=== PATIENT | female | born 1970 | race Caucasian/White ===

== ENCOUNTER 2018-02-16 06:34 | Emergency (ER) | payer BC, MEDICAID ==
[2018-02-16 06:34] VITALS: BMI 19.1
[2018-02-16] MEDS ORDERED: Sodium Chloride 0.9% 1,000 ML IV STA (07:23)
[2018-02-16] MEDS ORDERED: Morphine 4 MG/ML VIAL ONE (07:31)
[2018-02-16] MEDS ORDERED: Sodium Chloride 0.9% 1,000 ML ONE (07:31)
[2018-02-16 07:48] LABS: BASO # 0.1 K/uL (0.0-0.2); BASO % 0.7 % (0.0-2.0); EOS % 0.1 % (0.0-4.0); HEMOGLOBIN 11.9 g/dL (11.0-16.0); LYMPH % 7.4 % (20.0-40.0); MEAN CELL VOLUME 86.6 fL (81.0-99.0); MEAN CORPUSCULAR HEMOGLOBIN 29.2 pg (27.0-31.0); MEAN CORPUSCULAR HGB CONC 33.8 g/dL (33.0-37.0); MEAN PLATELET VOLUME 9.9 fL (7.2-11.7); MONO # 0.6 K/uL (0.0-0.8); MONO % 4.2 % (0.0-10.0); NEUT # 11.4 K/uL (1.8-7.0); NEUT % 87.6 % (50.0-75.0); PLATELET COUNT 208 K/uL (130-400); RBC 4.08 Mil/uL (3.80-5.20); RED CELL DISTRIBUTION WIDTH 12.7 % (11.5-14.5)
[2018-02-16 08:02] LABS: INR 1.3; PROTHROMBIN TIME 13.7 SECONDS (9.7-12.2)
[2018-02-16 08:11] LABS: ALB/GLOB RATIO 1.2 (1.0-2.1); ALBUMIN 3.8 g/dL (3.5-5.0); CALCIUM 8.6 mg/dl (8.6-10.4); GFR NON-AFRICAN AMERICAN > 60; LIPASE 121 U/L (23-300)
[2018-02-16 08:13] LABS: ALT/SGPT 27 U/L (9-52); AST/SGOT 32 U/L (14-36); BLOOD UREA NITROGEN 12 mg/dL (7-17)
[2018-02-16 08:15] LABS: BANDS 1 % (0-2); LYMPHOCYTE 9 % (20-40); MONOCYTE 6 % (0-10); NEUTROPHIL 84 % (50-75); TOTAL CELLS COUNTED 100
[2018-02-16 08:19] LABS: PLATELET ESTIMATE NORMAL (NORMAL)
[2018-02-16 09:03] LABS: SQUAMOUS EPITHIAL 2 /hpf (0-5); URINE BILIRUBIN NEGATIVE (NEGATIVE); URINE BLOOD NEGATIVE (NEGATIVE); URINE CLARITY Clear (Clear); URINE COLOR Yellow (YELLOW); URINE GLUCOSE (UA) NORMAL (Normal); URINE LEUKOCYTE ESTERASE NEG Leu/uL (Negative); URINE PROTEIN NEGATIVE (NEGATIVE); URINE UROBILINOGEN NORMAL mg/dL (0.2-1.0)
[2018-02-16 09:09] LABS: HCG,QUALITATIVE URINE NEGATIVE (NEGATIVE)
--- NOTE | 2018-02-16 09:43 | C.PDOC ---
History Of Present Illness 48 y/o female presents to ED c/o nausea, vomiting, and abdominal pain since last night. Denies fever, chills, diarrhea, dysuria, hematuria, urinary frequency, or back pain. Time Seen by Provider: 02/16/18 07:13 Chief Complaint (Nursing): Abdominal Pain History Per: Patient History/Exam Limitations: no limitations Onset/Duration Of Symptoms: Days Current Symptoms Are (Timing): Still Present Radiation Of Pain To:: None Quality Of Discomfort: "Pain" Associated Symptoms: Nausea, Vomiting. denies: Diarrhea, Loss Of Appetite, Constipation, Urinary Symptoms Exacerbating Factors: None Alleviating Factors: None Recent travel outside of the [place]: No Additional History Per: Patient Abnormal Vaginal Bleeding: No Past Medical History Reviewed: Historical Data, Nursing Documentation, Vital Signs Vital Signs: Last Vital Signs Temp 98.4 F 02/16/18 12:29 Pulse 85 02/16/18 12:29 Resp 17 02/16/18 12:29 BP 90/53 L 02/16/18 12:29 Pulse Ox 100 02/17/18 18:58 - Medical History PMH: Anemia (HEAVY MENSTRUATION) - [facility] Procedures EXCISE AXILLARY NODE (12/02/13) PERCUTAN NEEDLE BIOPSY OF BREAST (10/02/13) SUBTOTAL MASTECTOMY (12/02/13) Family History: States: Unknown Family Hx - Social History Hx Alcohol Use: No Hx Substance Use: No Review Of Systems Except As Marked, All Systems Reviewed And Found Negative. Constitutional: Negative for: Fever, Chills Gastrointestinal: Positive for: Nausea, Vomiting, Abdominal Pain. Negative for : Diarrhea, Constipation, Hematemesis Genitourinary: Negative for: Dysuria, Frequency, Incontinence, Hematuria, Vaginal Discharge Physical Exam - Physical Exam Appears: Non-toxic, No Acute Distress Skin: Normal Color, Warm (warm to touch), Dry Head: Atraumatic, Normacephalic Eye(s): bilateral: Normal Inspection Oral Mucosa: Moist Neck: Normal ROM, Supple Cardiovascular: Rhythm Regular Respiratory: Normal Breath Sounds, No Rales, No Rhonchi, No Wheezing Gastrointestinal/Abdominal: Soft, Tenderness (RUQ, epigastric), No Guarding, No Rebound Back: No CVA Tenderness Extremity: Normal ROM Neurological/Psych: Oriented x3, Normal Speech ED Course And Treatment - Laboratory Results Result Diagrams: 02/16/18 07:44 02/16/18 07:44 O2 Sat by Pulse Oximetry: 100 (RA) Pulse Ox Interpretation: Normal - CT Scan/US Abdomen US Other Rad Studies (CT/US): Read By Radiologist, Radiology Report Reviewed CT/US Interpretation: FINDINGS: LIVER: Measures 16.3 cm in length. Normal echogenicity of the liver parenchyma. No mass. No intrahepatic bile duct dilatation. GALLBLADDER: Unremarkable. No gallstones. No pericholecystic fluid collections or sonographic Pritchett sign. COMMON BILE DUCT: Measures 5.0 mm. No stones. No dilatation. PANCREAS: Unremarkable as visualized. No mass. No ductal dilatation. RIGHT KIDNEY: Measures 9.0 x 3.9 x 4.9 cm in length. Normal echogenicity. No calculus, mass, or hydronephrosis. AORTA: No aneurysmal dilatation. IVC: Unremarkable. OTHER FINDINGS: None . IMPRESSION : Unremarkable right upper quadrant ultrasound. Abd & Pelvis CT Other Rad Studies (CT/US): Read By Radiologist, Radiology Report Reviewed CT/US Interpretation: FINDINGS: LOWER THORAX: Heart size is within range of normal. No significant pericardial effusion. Small hiatal hernia with wall thickening of distal esophagus that could be due to protrusion gastric mucosa. Possibility of esophagitis not excluded. Mild passive/dependent type atelectasis both posterior sulci. There appears to be some minimal linear atelectasis or scarring in the middle lobe region as well. LIVER: The liver exhibits normal size measuring approximately 17.6 cm in CC dimension. There appears to be mild fatty hepatic infiltration. Portal and splenic veins are opacified. GALLBLADDER AND BILE DUCTS: Gallbladder physiologically distended. No evidence of intraluminal gallbladder calculi. PANCREAS: Unremarkable. No mass. No ductal dilatation. SPLEEN: Unremarkable. No splenomegaly. ADRENALS: There is a small approximately 13.5 mm right adrenal nodule. Left adrenal gland is slightly nodular in appearance. Recommend followup nonemergent MRI of the adrenal glands recommended for further evaluation given the patient's history of breast carcinoma. . KIDNEYS AND URETERS: Kidneys demonstrate symmetric nephrograms. No evidence of nephrolithiasis or hydronephrosis. BLADDER: Urinary bladder is markedly distended. No evidence of intraluminal urinary bladder calculi. REPRODUCTIVE: Uterus is somewhat bulky and heterogeneous in appearance with what appears to represent a few discrete fibroids. Probable small bilateral ovarian cystic changes. . Followup nonemergent pelvic ultrasound could be performed for further evaluation. APPENDIX: Appendix is not seen with complete certainty on this exam however no obvious inflammatory changes right lower quadrant of the abdomen. BOWEL: Evaluation of the bowel is slightly limited due to incomplete opacification. Stomach is incompletely distended which in part accounts thick-walled appearance. There is also what appears to represent some edema within the distal pylorus/ proximal duodenum of nonspecific ; rule out duodenitis or possibly peptic ulcer disease. Remaining visualized loops of small bowel exhibit relatively normal contour and caliber. No evidence acute mechanical small bowel obstruction with oral contrast material extending into the colon to the level of distal transverse colon/splenic flexure junction. . No definitive abnormal mural wall thickening of the colon however note that the good portion of the sigmoid colon is not well delineated on this study. PERITONEUM: Unremarkable. No fluid collection. No free air. LYMPH NODES: Unremarkable. No enlarged lymph nodes. VASCULATURE: Unremarkable. No aortic aneurysm. BONES: Minor multilevel degenerative spondylosis of the lower thoracic and lumbar spine. No acute fractures. No destructive lesions are identified. OTHER FINDINGS: None. IMPRESSION: There appears to be wall thickening and/or edema of the gastric pylorus and proximal duodenum; rule out duodenitis or possibly peptic ulcer disease. Small hiatal hernia with wall thickening of distal esophagus likely due to protrusion gastric mucosa. Esophagitis or other intrinsic/ invasive wall lesion not excluded. Right adrenal nodule with nodular appearing left adrenal gland. ; follow-up nonemergent MRI of the adrenal glands could be performed further evaluation due to the patient's history of breast carcinoma. Mild fatty hepatic infiltration. Uterine fibroids with apparent small bilateral ovarian cysts. . Nonemergent pelvic ultrasound could be performed for further evaluation. Progress Note: On re-evaluation patient feels better, tolerating po and is stable to be dc home. Medical Decision Making Medical Decision Making: Plan: Blood work Urinalysis Abdomen ultrasound Morphine Protonix Tylenol Zofran IV fluids Disposition - Disposition Disposition: HOME/ ROUTINE Disposition Time: 14:12 Condition: STABLE Additional Instructions: Follow up with PMD and [facility]atsroenterologist within 1-2 days. Return to ED if feel worse. Prescriptions: Famotidine [Pepcid] 20 mg PO BID #20 tab Omeprazole Magnesium [Prilosec Otc] 20 mg PO DAILY #30 tablet. Ondansetron ODT [Zofran ODT] 4 mg PO .Q4-6H PRN #20 odt PRN Reason: Nausea/Vomiting Instructions: [place] Diet, Gastritis (DC) Forms: [facility] [employer] (Cam[place]onian) - Clinical Impression Clinical Impression: Viral gastritis - PA / DOCTOR OSTEOPATHIC / Resident Statement MD/DO has reviewed & agrees with the documentation as recorded. - Scribe Statement The provider has reviewed the documentation as recorded by the Scribe KP All medical record entries made by the Scribe were at my direction and personally dictated by me. I have reviewed the chart and agree that the record accurately reflects my personal performance of the history, physical exam, medical decision making, and the department course for this patient. I have also personally directed, reviewed, and agree with the discharge instructions and disposition.
--- NOTE | 2018-02-16 10:07 | US ---
Date of service: 02/16/2018 HISTORY: Epigastric and RUQ abd pain, vomiting COMPARISON: None. TECHNIQUE: Sonographic evaluation of the right upper quadrant of the abdomen. FINDINGS: LIVER: Measures 16.3 cm in length. Normal echogenicity of the liver parenchyma. No mass. No intrahepatic bile duct dilatation. GALLBLADDER: Unremarkable. No gallstones. No pericholecystic fluid collections or sonographic Pritchett sign COMMON BILE DUCT: Measures 5.0 mm. No stones. No dilatation. PANCREAS: Unremarkable as visualized. No mass. No ductal dilatation. RIGHT KIDNEY: Measures 9.0 x 3.9 x 4.9 cm in length. Normal echogenicity. No calculus, mass, or hydronephrosis. AORTA: No aneurysmal dilatation. IVC: Unremarkable. OTHER FINDINGS: None . IMPRESSION: Unremarkable right upper quadrant ultrasound.
[2018-02-16] MEDS ORDERED: Iohexol 240 (50 ml) PO STA (10:26)
[2018-02-16] MEDS ORDERED: Iohexol 240 (50 ml) ONE (10:42)
[2018-02-16 12:30] VITALS: BP 90/53; PULSE 85; RESP 17; TEMP 98.4
[2018-02-16] MEDS ORDERED: Iodixanol 320 MG/ML 100 ML BOTTLE IV ONE (12:32)
--- NOTE | 2018-02-16 12:57 | RAD ---
Date of service: 02/16/2018 HISTORY: fever COMPARISON: Comparison chest dated 11/26/2013 TECHNIQUE: Chest PA and lateral FINDINGS: LUNGS: There appears to be some mild biapical pleural thickening with adjacent fibrosis and or on blebs/cystic changes both lung apices. Minor linear atelectasis and/or scarring changes also felt be present both lung bases left greater than right. PLEURA: No significant pleural effusion identified. No pneumothorax apparent. CARDIOVASCULAR: Normal. OSSEOUS STRUCTURES: No significant abnormalities. VISUALIZED UPPER ABDOMEN: Normal. OTHER FINDINGS: None. IMPRESSION: There appears to be some mild biapical pleural thickening with adjacent fibrosis and or on blebs/cystic changes both lung apices. Minor linear atelectasis and/or scarring changes also felt be present both lung bases left greater than right.
[2018-02-16 13:00] VITALS: O2SAT 100
--- NOTE | 2018-02-16 14:07 | CT ---
Date of service: 02/16/2018 PROCEDURE: CT abdomen pelvis dated 02/16/2018 HISTORY: Abdominal pain and fever in a patient with a history of breast carcinoma COMPARISON: None. TECHNIQUE: Contiguous axial images of the abdomen and pelvis following oral and intravenous injection of approximately 100 cc Visipaque 320 contrast material. Additional 2D sagittal and coronal reformats generated. Radiation dose: Total exam DLP = 235.31 mGy-cm. This CT exam was performed using one or more of the following dose reduction techniques: Automated exposure control, adjustment of the mA and/or kV according to patient size, and/or use of iterative reconstruction technique. FINDINGS: LOWER THORAX: Heart size is within range of normal. No significant pericardial effusion. Small hiatal hernia with wall thickening of distal esophagus that could be due to protrusion gastric mucosa. Possibility of esophagitis not excluded. Mild passive/dependent type atelectasis both posterior sulci. There appears to be some minimal linear atelectasis or scarring in the middle lobe region as well. LIVER: The liver exhibits normal size measuring approximately 17.6 cm in CC dimension. There appears to be mild fatty hepatic infiltration. Portal and splenic veins are opacified. GALLBLADDER AND BILE DUCTS: Gallbladder physiologically distended. No evidence of intraluminal gallbladder calculi. PANCREAS: Unremarkable. No mass. No ductal dilatation. SPLEEN: Unremarkable. No splenomegaly. ADRENALS: There is a small approximately 13.5 mm right adrenal nodule. Left adrenal gland is slightly nodular in appearance. Recommend followup nonemergent MRI of the adrenal glands recommended for further evaluation given the patient's history of breast carcinoma. . KIDNEYS AND URETERS: Kidneys demonstrate symmetric nephrograms. No evidence of nephrolithiasis or hydronephrosis. BLADDER: Urinary bladder is markedly distended. No evidence of intraluminal urinary bladder calculi. REPRODUCTIVE: Uterus is somewhat bulky and heterogeneous in appearance with what appears to represent a few discrete fibroids. Probable small bilateral ovarian cystic changes. . Followup nonemergent pelvic ultrasound could be performed for further evaluation. APPENDIX: Appendix is not seen with complete certainty on this exam however no obvious inflammatory changes right lower quadrant of the abdomen. BOWEL: Evaluation of the bowel is slightly limited due to incomplete opacification. Stomach is incompletely distended which in part accounts thick-walled appearance. There is also what appears to represent some edema within the distal pylorus/ proximal duodenum of nonspecific ; rule out duodenitis or possibly peptic ulcer disease. Remaining visualized loops of small bowel exhibit relatively normal contour and caliber. No evidence acute mechanical small bowel obstruction with oral contrast material extending into the colon to the level of distal transverse colon/splenic flexure junction. . No definitive abnormal mural wall thickening of the colon however note that the good portion of the sigmoid colon is not well delineated on this study PERITONEUM: Unremarkable. No fluid collection. No free air. LYMPH NODES: Unremarkable. No enlarged lymph nodes. VASCULATURE: Unremarkable. No aortic aneurysm. BONES: Minor multilevel degenerative spondylosis of the lower thoracic and lumbar spine. No acute fractures. No destructive lesions are identified. OTHER FINDINGS: None. IMPRESSION: There appears to be wall thickening and/or edema of the gastric pylorus and proximal duodenum; rule out duodenitis or possibly peptic ulcer disease. Small hiatal hernia with wall thickening of distal esophagus likely due to protrusion gastric mucosa. Esophagitis or other intrinsic/ invasive wall lesion not excluded. Right adrenal nodule with nodular appearing left adrenal gland. ; follow-up nonemergent MRI of the adrenal glands could be performed further evaluation due to the patient's history of breast carcinoma Mild fatty hepatic infiltration. Uterine fibroids with apparent small bilateral ovarian cysts. . Nonemergent pelvic ultrasound could be performed for further evaluation.
== END 2018-02-16 14:35 | disposition home or self-care (01) ==
LOC: C.ER 06:34
DX: A08.4 Viral intestinal infection, unspecified (principal)
CPT/HCPCS: 71046; 74177; 76705; 80053; 81001; 83690; 84703; 85025; 85610; 85730; 96361; 96374; 96375; 99285; C9113; J2270; J2405; J7030; Q9966; Q9967

== ENCOUNTER 2018-08-31 19:14 | Emergency (ER) | payer BC ==
[2018-08-31 19:14] VITALS: BMI 19.1
[2018-08-31] MEDS ORDERED: Sodium Chloride 0.9% 1,000 ML IV ONE (19:42)
--- NOTE | 2018-08-31 19:48 | C.PDOC ---
History Of Present Illness 48 year old female presents with abdominal pain since this morning associated with four episodes of vomiting. Patient states the pain is epigastric and right sided. Denies dysuria or hematuria. Chief Complaint (Nursing): Abdominal Pain History Per: Patient History/Exam Limitations: no limitations Onset/Duration Of Symptoms: Hrs Current Symptoms Are (Timing): Still Present Location Of Pain/Discomfort: RUQ, Epigastric Radiation Of Pain To:: None Quality Of Discomfort: Unable To Describe Associated Symptoms: Vomiting (Four). denies: Urinary Symptoms Exacerbating Factors: None Alleviating Factors: None Recent travel outside of the [place]: No Abnormal Vaginal Bleeding: No Past Medical History Reviewed: Historical Data, Nursing Documentation, Vital Signs Vital Signs: Last Vital Signs Temp 98.6 F 08/31/18 19:19 Pulse 100 H 08/31/18 19:19 Resp 18 08/31/18 19:19 BP 90/62 L 08/31/18 19:19 Pulse Ox 100 08/31/18 19:19 - Medical History PMH: Anemia (HEAVY MENSTRUATION) - [facility] Procedures EXCISE AXILLARY NODE (12/02/13) PERCUTAN NEEDLE BIOPSY OF BREAST (10/02/13) SUBTOTAL MASTECTOMY (12/02/13) Family History: States: Unknown Family Hx - Social History Hx Alcohol Use: No Hx Substance Use: No - Immunization History Hx Tetanus Toxoid Vaccination: No Hx Influenza Vaccination: No Hx Pneumococcal Vaccination: No Review Of Systems Constitutional: Negative for: Fever, Chills Cardiovascular: Negative for: Chest Pain, Palpitations Respiratory: Negative for: Cough, Shortness of Breath Gastrointestinal: Positive for: Vomiting, Abdominal Pain. Negative for: Nausea, Diarrhea Genitourinary: Negative for: Dysuria, Hematuria Neurological: Negative for: Weakness, Numbness Physical Exam - Physical Exam Appears: Non-toxic, Other (Mild distress) Skin: Normal Color, Warm, Dry Head: Atraumatic, Normacephalic Eye(s): bilateral: Normal Inspection Oral Mucosa: Moist Neck: Normal, Supple Chest: Symmetrical, No Tenderness Cardiovascular: Rhythm Regular Respiratory: Normal Breath Sounds, No Rales, No Rhonchi, No Wheezing Gastrointestinal/Abdominal: Soft, Tenderness (Epigastric, RUQ), No Guarding, No Rebound Back: CVA Tenderness (Mild right) Neurological/Psych: Oriented x3, Normal Speech ED Course And Treatment - Laboratory Results Result Diagrams: 08/31/18 19:59 08/31/18 19:59 O2 Sat by Pulse Oximetry: 100 (Room air) Pulse Ox Interpretation: Normal Progress Note: CT abd/pel, blood work, and urinalysis ordered. Protonix, zofran, and IV fluids administered. Disposition Counseled Patient/Family Regarding: Diagnosis - Disposition Referrals: Jass Davila MD [Primary Care Provider] - [facility] [Outside] Disposition: HOME/ ROUTINE Disposition Time: 01:00 Condition: STABLE Prescriptions: Pantoprazole Sodium [Protonix] 40 mg PO DAILY #20 ect Sucralfate [Carafate] 1 gm PO BID #30 oral.susp Instructions: Acute Abdomen (Belly Pain), Child (DC), Gastritis (DC), Ovarian Cyst (DC) Forms: [employer] ([place]) - POA Present On Arrival: None - Clinical Impression Clinical Impression: Abdominal pain, Gastritis - Scribe Statement The provider has reviewed the documentation as recorded by the Scribmarco Weaver All medical record entries made by the Carlyibmarco were at my direction and personally dictated by me. I have reviewed the chart and agree that the record accurately reflects my personal performance of the history, physical exam, medical decision making, and the department course for this patient. I have also personally directed, reviewed, and agree with the discharge instructions and disposition.
[2018-08-31 20:02] LABS: BASO % 0.8 % (0.0-2.0); HEMOGLOBIN 12.3 g/dL (11.0-16.0); LYMPH # 0.7 K/uL (1.0-4.3); LYMPH % 11.7 % (20.0-40.0); MEAN CORPUSCULAR HEMOGLOBIN 27.5 pg (27.0-31.0); MEAN CORPUSCULAR HGB CONC 32.4 g/dL (33.0-37.0); MEAN PLATELET VOLUME 8.8 fL (7.2-11.7); MONO # 0.5 K/uL (0.0-0.8); MONO % 7.2 % (0.0-10.0); NEUT # 5.1 K/uL (1.8-7.0); NEUT % 80.3 % (50.0-75.0); NRBC % 0.1 % (0.0-2.0); RBC 4.46 Mil/uL (3.80-5.20); RED CELL DISTRIBUTION WIDTH 14.5 % (11.5-14.5); WHITE BLOOD COUNT 6.4 K/uL (4.8-10.8)
[2018-08-31] MEDS ORDERED: Sodium Chloride 0.9% 1,000 ML ONE (20:04)
[2018-08-31 20:15] LABS: ALB/GLOB RATIO 1.2 (1.0-2.1); ALBUMIN 3.8 g/dL (3.5-5.0); BLOOD UREA NITROGEN 8 mg/dL (7-17); CALCIUM 8.6 mg/dl (8.6-10.4); GFR NON-AFRICAN AMERICAN > 60; LIPASE 48 U/L (23-300)
[2018-08-31] MEDS ORDERED: Iodixanol 320 MG/ML 100 ML BOTTLE IV ONE (20:33)
[2018-08-31 20:39] LABS: ALT/SGPT 14 U/L (9-52); AST/SGOT 35 U/L (14-36)
[2018-08-31 22:32] LABS: SQUAMOUS EPITHIAL 5 /hpf (0-5); URINE BACTERIA RARE (<OCC); URINE BILIRUBIN NEGATIVE (NEGATIVE); URINE BLOOD 2+ (NEGATIVE); URINE CLARITY Hazy (Clear); URINE COLOR Yellow (YELLOW); URINE GLUCOSE (UA) NORMAL (Normal); URINE LEUKOCYTE ESTERASE NEG Leu/uL (Negative); URINE PROTEIN NEGATIVE (NEGATIVE)
[2018-08-31 22:37] VITALS: TEMP 98.2
[2018-09-01 01:30] VITALS: BP 94/60; PULSE 78; RESP 18
--- NOTE | 2018-09-01 08:53 | CT ---
CT abdomen and pelvis HISTORY: Right-sided abdominal pain. COMPARISON: CT dated 02/16/2018 TECHNIQUE: Multiple contiguous axial images were performed through the abdomen and pelvis with the use of intravenous contrast. Subsequently, sagittal and coronal reformatted images were obtained. This CT exam was performed using one or more of the following dose reduction techniques: Automated exposure control, adjustment of the mA and/or kV according to patient size, and/or use of iterative reconstruction technique. Findings: Mild atelectasis in the right middle lobe. Mild atelectasis in the lingula. Mild atelectasis in the left lower lobe. No pleural or pericardial effusion. Liver and gallbladder are preserved. Spleen is preserved. Adrenal glands are preserved. Pancreas is preserved. Small hiatal hernia. Few mildly thickened loops of bowel in the left cheo abdomen. Right kidney: No calculi or hydronephrosis. Left Kidney: No calculi or hydronephrosis. Mildly thick-walled urinary bladder. Prominent enlarged bulky and heterogeneous uterus. Large multiloculated and septated right adnexal cystic collection/lesion measuring 6.0 x 2.9 centimeters. This may represent a complex right ovarian cystic lesion versus tubo-ovarian pathology versus additional etiology. Correlation with pelvic ultrasound would be helpful for further evaluation if clinically indicated. Clinical correlation. Left lower ovarian varices with possible thrombosis in a couple of the varices. Clinical correlation. This is seen on series 3, image 129. Fecal retention in the colon. Redundant sigmoid colon. Correlation with colonoscopy may be helpful if clinically indicated. Appendix not well delineated. Few shotty para-aortic and inguinal lymph nodes. Few shotty mesenteric lymph nodes. Degenerative changes in the spine. Impression: Large multiloculated and septated right adnexal cystic collection/lesion measuring 6.0 x 2.9 centimeters. This may represent a complex right ovarian cystic lesion versus tubo-ovarian pathology versus additional etiology. Correlation with pelvic ultrasound would be helpful for further evaluation if clinically indicated. Clinical correlation. Prominent enlarged bulky and heterogeneous uterus. Left lower ovarian varices with possible thrombosis in a couple of the varices. Clinical correlation. This is seen on series 3, image 129. Clinical correlation. Mildly thick-walled urinary bladder. Fecal retention in the colon. Redundant sigmoid colon. Correlation with colonoscopy may be helpful if clinically indicated. Few mildly thickened loops of bowel in the left cheo abdomen. A preliminary report was generated at 9:50 p.m. on 08/31/[address] Ozzy Rothman from [facility] rad.
--- NOTE | 2018-09-01 10:59 | US ---
Pelvic ultrasound HISTORY: Pelvic pain. COMPARISON: CT scan dated 08/31/2018 TECHNIQUE: Real-time sonography was performed through the pelvis utilizing transabdominal and transvaginal techniques. Findings: Uterus: Bulky heterogeneous enlarged uterus measuring 12.0 x 6.8 x 8.3 centimeters. Heterogeneous echotexture. Anteverted. Heterogeneous lesion seen within the fundus of the uterus measuring 2.6 x 2.1 x 2.5 centimeters suggestive for a fibroid lesion. Endometrium measures 1.1 centimeters, mildly prominent. Clinical correlation. No free fluid in the pelvic cul-de-sac. Right ovary: Enlarged measuring 7.3 x 3.5 x 6.0 centimeters. Normal flow. Complex heterogeneous cyst/cystic lesion measuring 2.9 x 3.4 x 3.4 centimeters. Additional complex heterogeneous cystic lesion measuring 3.7 x 3.1 x 3.2 centimeters with an associated internal nodular echogenic focus measuring 1.7 x 1.0 x 2.1 centimeters. Left ovary: Not well visualized. Impression: Prominent enlarged right ovary measuring up to 7.3 centimeters with complex cystic lesions as described above at the level of the right ovary. Clinical correlation. Correlation with pelvic MRI would be helpful for further evaluation if clinically indicated. Heterogeneous lesion seen within the fundus of the uterus suggestive for a fibroid lesion measuring up to 2.6 centimeters. Prominent endometrium measuring up to 1.1 centimeters. Clinical correlation. Left ovary not well visualized. A preliminary report was generated at 12:10 a.m. on 09/01/[address] Ozzy Rothman from [facility].
[2018-09-24 10:28] VITALS: O2SAT 100
== END 2018-09-01 01:31 | disposition home or self-care (01) ==
LOC: SUPCPDRO 19:14 → C.ER 19:14
DX: K29.70 Gastritis, unspecified, without bleeding (principal); R10.11 Right upper quadrant pain
CPT/HCPCS: 74177; 76830; 76856; 80053; 81001; 83690; 85025; 96374; 96375; 99285; C9113; J2405; J7030; Q9967